=== PATIENT | female | born 1995 | race Caucasian/White ===

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

== ENCOUNTER 2018-08-26 01:24 | Emergency (ER) | payer BC ==
[2018-08-26 03:35] LABS: ALT 36 U/L (9-52); AST 22 U/L (14-36); Albumin 4.2 g/dL (3.5-5.0); Alkaline Phosphatase 66 U/L (38-126); Anion Gap 8 mmol/L; Blood Urea Nitrogen 14 mg/dL (7-17); Calcium 9.6 mg/dL (8.4-10.2); Carbon Dioxide 25 mmol/L (22-30); Chloride 106 mmol/L (98-107); Glucose 110 mg/dL (74-99); Sodium 139 mmol/L (137-145); Total Bilirubin 0.2 mg/dL (0.2-1.3); Total Protein 7.1 g/dL (6.3-8.2)
[2018-08-26 03:36] LABS: Amorphous Sediment,Urine Occasional /hpf; Appearance,Urine Cloudy (Clear); Bacteria,Urine Many /hpf; Bilirubin,Urine Negative (Negative); Blood,Urine Large (Negative); Color,Urine Yellow; Glucose,Urine (UA) Negative (Negative); Ketones,Urine Negative (Negative); Leukocyte Esterase,Urine Small (Negative); Mucus,Urine Few /hpf; Nitrite,Urine Negative (Negative); PH, Urine 5.5 (5.0-8.0); Protein,Urine Trace (Negative); RBC,Urine 13 /hpf (0-5); Specific Gravity,Urine 1.015 (1.001-1.035); Squamous Epithelial Cell,Urine 15 /hpf (0-4); Urobilinogen,Urine <2.0 mg/dL (<2.0); WBC,Urine 16 /hpf (0-5)
[2018-08-26 03:41] LABS: HCG,Qualitative Serum Detected
[2018-08-26 04:02] LABS: Basophils % (A) 0 %; Eosinophils # (A) 0.5 k/uL (0-0.7); Eosinophils % (A) 5 %; HCT 38.4 % (34.0-46.0); HGB 12.3 gm/dL (11.4-16.0); Lymphocytes # (A) 2.5 k/uL (1.0-4.8); Lymphocytes % (A) 24 %; MCHC 32.1 g/dL (31.0-37.0); MCV 87.2 fL (80.0-100.0); Mean Platelet Volume 5.9; Monocytes # (A) 0.6 k/uL (0-1.0); Monocytes % (A) 5 %; Neutrophils # (A) 6.8 k/uL (1.3-7.7); Neutrophils % (A) 64 %; Platelet Count 230 k/uL (150-450); RDW 13.7 % (11.5-15.5); WBC 10.5 k/uL (4.0-11.0)
--- NOTE | 2018-08-26 04:36 | ED ---
Female Urogenital HPI - General Chief complaint: Vaginal Bleeding Stated complaint: poss miscarriage 12 wks Time Seen by Provider: 08/26/18 03:23 Source: patient Mode of arrival: ambulatory Limitations: no limitations - History of Present Illness Initial comments: 22-year-old female patient presents to the emergency department today for evaluation of vaginal bleeding. Patient is approximately 12 weeks , . Patient states bleeding started a couple hours prior to arrival. States that she has had passage of dark red blood and small blood clots. Patient states she did have ultrasound confirming intrauterine at 6 weeks gestation. Patient states that she will be establishing care with Dr. Harrison. She states that she is having some mild suprapubic cramping but denies any low back pain. Denies any passage of tissue. Patient denies any hematuria, dysuria , urinary frequency, urinary urgency. Patient denies any recent rash, fever, chills, shortness breath, chest pain, diarrhea, constipation, back pain, numbness, tingling, dizziness, weakness, headache, visual changes, or any other complaints. Last Menstrual Period: 05/16/18 - Related Data Home Medications Medication Instructions Recorded Confirmed Ascorbic Acid [Vitamin C] 500 mg PO DAILY 11/03/16 11/03/16 Ibuprofen [Motrin] 200 - 400 mg PO Q6HR PRN 11/03/16 11/03/16 Previous Rx's Medication Instructions Recorded Azithromycin [Zithromax] 250 mg PO DIRECTED #6 tab 11/04/16 Allergies Allergy/AdvReac Type Severity Reaction Status Date / Time No Known Allergies Allergy Verified 08/26/18 01:41 Review of Systems ROS Statement: Those systems with pertinent positive or pertinent negative responses have been documented in the HPI. ROS Other: All systems not noted in ROS Statement are negative. Past Medical History Past Medical History: No Reported History History of Any Multi-Drug Resistant Organisms: None Reported Past Surgical History: No Surgical Hx Reported Past Psychological History: ADD/ADHD Smoking Status: Light tobacco smoker Past Alcohol Use History: Occasional Past Drug Use History: Marijuana General Exam Limitations: no limitations General appearance: alert, in no apparent distress, other (This is a well- developed, well-nourished adult male patient in no acute distress. Vital signs upon presentation are temperature 98.0F, pulse 107, respirations 20, blood pressure 141/79, pulse ox 99% on room air.) Eye exam: Present: normal appearance, PERRL, EOMI. Absent: scleral icterus, conjunctival injection, periorbital swelling ENT exam: Present: normal exam, normal oropharynx, mucous membranes moist Respiratory exam: Present: normal lung sounds bilaterally. Absent: respiratory distress, wheezes, rales, rhonchi, stridor Cardiovascular Exam: Present: regular rate, normal rhythm, normal heart sounds. Absent: systolic murmur, diastolic murmur, rubs, gallop, clicks GI/Abdominal exam: Present: soft, normal bowel sounds. Absent: distended, tenderness, guarding, rebound, rigid External exam: Present: normal external exam Speculum exam: Present: vaginal bleeding (Dark red vaginal bleeding, no clots), other (Cervical os is closed). Absent: normal speculum exam Neurological exam: Present: alert, oriented X3, CN II-XII intact Psychiatric exam: Present: normal affect, normal mood Skin exam: Present: warm, dry, intact, normal color. Absent: rash Course Vital Signs 08/26/18 08/26/18 01:36 07:07 Temperature 98 F 97.7 F Pulse Rate 107 H 82 Respiratory 20 16 Rate Blood Pressure 141/79 138/78 O2 Sat by Pulse 99 99 Oximetry Medical Decision Making - Medical Decision Making 22-year-old female patient who is approximately 12 weeks presented to the emergency department today for evaluation of vaginal bleeding. Physical examination did reveal dark red bleeding in the vaginal vault. Cervical os is closed. Labs reviewed and did reveal hCG of 2000. Ultrasound did reveal a blighted ovum. I did discuss findings and results with patient and family. My attending Dr. Keene spoke to Dr. Craig come patient will follow-up in the office. Return parameters were discussed in detail. She verbalizes understanding and agreed with this plan. - Lab Data Result diagrams: 08/26/18 03:03 08/26/18 03:03 Lab Results 08/26/18 08/26/18 08/26/18 Range/Units 03:03 03:03 03:03 WBC (4.0-11.0) k/uL RBC (3.80-5.40) m/uL Hgb (11.4-16.0) gm/dL Hct (34.0-46.0) % MCV (80.0-100.0) fL MCH (25.0-35.0) pg MCHC (31.0-37.0) g/dL RDW (11.5-15.5) % Plt Count (150-450) k/uL Neutrophils % % Lymphocytes % % Monocytes % % Eosinophils % % Basophils % % Neutrophils # (1.3-7.7) k/uL Lymphocytes # (1.0-4.8) k/uL Monocytes # (0-1.0) k/uL Eosinophils # (0-0.7) k/uL Basophils # (0-0.2) k/uL APTT (22.0-30.0) sec Sodium 139 (137-145) mmol/L Potassium 4.0 (3.5-5.1) mmol/L Chloride 106 (98-107) mmol/L Carbon Dioxide 25 (22-30) mmol/L Anion Gap 8 mmol/L BUN 14 (7-17) mg/dL Creatinine 0.48 L (0.52-1.04) mg/dL Est GFR (CKD-EPI)AfAm >90 (>60 ml/min/1.73 sqM) Est GFR (CKD-EPI)NonAf >90 (>60 ml/min/1.73 sqM) Glucose 110 H (74-99) mg/dL Calcium 9.6 (8.4-10.2) mg/dL Total Bilirubin 0.2 (0.2-1.3) mg/dL AST 22 (14-36) U/L ALT 36 (9-52) U/L Alkaline Phosphatase 66 (38-126) U/L Total Protein 7.1 (6.3-8.2) g/dL Albumin 4.2 (3.5-5.0) g/dL HCG, Qual Detected HCG, Quant mIU/mL Urine Color Yellow Urine Appearance Cloudy H (Clear) Urine pH 5.5 (5.0-8.0) Ur Specific [place] 1.015 (1.001-1.035) Urine Protein Trace H (Negative) Urine Glucose (UA) Negative (Negative) Urine Ketones Negative (Negative) Urine Blood Large H (Negative) Urine Nitrite Negative (Negative) Urine Bilirubin Negative (Negative) Urine Urobilinogen <2.0 (<2.0) mg/dL Ur Leukocyte Esterase Small H (Negative) Urine RBC 13 H (0-5) /hpf Urine WBC 16 H (0-5) /hpf Urine WBC Clumps Rare H (None) /hpf Ur Squamous Epith Cells 15 H (0-4) /hpf Amorphous Sediment Occasional H (None) /hpf Urine Bacteria Many H (None) /hpf Urine Mucus Few H (None) /hpf Blood Type O Positive Blood Type Confirm Blood Type Recheck CABO Indicated Antibody Screen NEGATIVE Spec Expiration Date 08/29/2018230208/26/18 08/26/18 08/26/18 Range/Units 03:03 03:03 03:03 WBC 10.5 (4.0-11.0) k/uL RBC 4.40 (3.80-5.40) m/uL Hgb 12.3 (11.4-16.0) gm/dL Hct 38.4 (34.0-46.0) % MCV 87.2 (80.0-100.0) fL MCH 28.0 (25.0-35.0) pg MCHC 32.1 (31.0-37.0) g/dL RDW 13.7 (11.5-15.5) % Plt Count 230 (150-450) k/uL Neutrophils % 64 % Lymphocytes % 24 % Monocytes % 5 % Eosinophils % 5 % Basophils % 0 % Neutrophils # 6.8 (1.3-7.7) k/uL Lymphocytes # 2.5 (1.0-4.8) k/uL Monocytes # 0.6 (0-1.0) k/uL Eosinophils # 0.5 (0-0.7) k/uL Basophils # 0.0 (0-0.2) k/uL APTT 24.9 (22.0-30.0) sec Sodium (137-145) mmol/L Potassium (3.5-5.1) mmol/L Chloride (98-107) mmol/L Carbon Dioxide (22-30) mmol/L Anion Gap mmol/L BUN (7-17) mg/dL Creatinine (0.52-1.04) mg/dL Est GFR (CKD-EPI)AfAm (>60 ml/min/1.73 sqM) Est GFR (CKD-EPI)NonAf (>60 ml/min/1.73 sqM) Glucose (74-99) mg/dL Calcium (8.4-10.2) mg/dL Total Bilirubin (0.2-1.3) mg/dL AST (14-36) U/L ALT (9-52) U/L Alkaline Phosphatase (38-126) U/L Total Protein (6.3-8.2) g/dL Albumin (3.5-5.0) g/dL HCG, Qual HCG, Quant 2414.6 mIU/mL Urine Color Urine Appearance (Clear) Urine pH (5.0-8.0) Ur Specific [place] (1.001-1.035) Urine Protein (Negative) Urine Glucose (UA) (Negative) Urine Ketones (Negative) Urine Blood (Negative) Urine Nitrite (Negative) Urine Bilirubin (Negative) Urine Urobilinogen (<2.0) mg/dL Ur Leukocyte Esterase (Negative) Urine RBC (0-5) /hpf Urine WBC (0-5) /hpf Urine WBC Clumps (None) /hpf Ur Squamous Epith Cells (0-4) /hpf Amorphous Sediment (None) /hpf Urine Bacteria (None) /hpf Urine Mucus (None) /hpf Blood Type Blood Type Confirm Blood Type Recheck Antibody Screen Spec Expiration Date 08/26/18 Range/Units 03:04 WBC (4.0-11.0) k/uL RBC (3.80-5.40) m/uL Hgb (11.4-16.0) gm/dL Hct (34.0-46.0) % MCV (80.0-100.0) fL MCH (25.0-35.0) pg MCHC (31.0-37.0) g/dL RDW (11.5-15.5) % Plt Count (150-450) k/uL Neutrophils % % Lymphocytes % % Monocytes % % Eosinophils % % Basophils % % Neutrophils # (1.3-7.7) k/uL Lymphocytes # (1.0-4.8) k/uL Monocytes # (0-1.0) k/uL Eosinophils # (0-0.7) k/uL Basophils # (0-0.2) k/uL APTT (22.0-30.0) sec Sodium (137-145) mmol/L Potassium (3.5-5.1) mmol/L Chloride (98-107) mmol/L Carbon Dioxide (22-30) mmol/L Anion Gap mmol/L BUN (7-17) mg/dL Creatinine (0.52-1.04) mg/dL Est GFR (CKD-EPI)AfAm (>60 ml/min/1.73 sqM) Est GFR (CKD-EPI)NonAf (>60 ml/min/1.73 sqM) Glucose (74-99) mg/dL Calcium (8.4-10.2) mg/dL Total Bilirubin (0.2-1.3) mg/dL AST (14-36) U/L ALT (9-52) U/L Alkaline Phosphatase (38-126) U/L Total Protein (6.3-8.2) g/dL Albumin (3.5-5.0) g/dL HCG, Qual HCG, Quant mIU/mL Urine Color Urine Appearance (Clear) Urine pH (5.0-8.0) Ur Specific [place] (1.001-1.035) Urine Protein (Negative) Urine Glucose (UA) (Negative) Urine Ketones (Negative) Urine Blood (Negative) Urine Nitrite (Negative) Urine Bilirubin (Negative) Urine Urobilinogen (<2.0) mg/dL Ur Leukocyte Esterase (Negative) Urine RBC (0-5) /hpf Urine WBC (0-5) /hpf Urine WBC Clumps (None) /hpf Ur Squamous Epith Cells (0-4) /hpf Amorphous Sediment (None) /hpf Urine Bacteria (None) /hpf Urine Mucus (None) /hpf Blood Type Blood Type Confirm O Positive Blood Type Recheck Antibody Screen Spec Expiration Date Disposition Clinical Impression: Blighted ovum Disposition: HOME SELF-CARE Condition: Good Instructions: Miscarriage (ED) Additional Instructions: Follow up with OBGYN for further evaluation. Take pain medication as needed. Return to the emergency department immediately for any new, worsening, or concerning symptoms. Is patient prescribed a controlled substance at d/c from ED?: No Referrals: None,Stated [Primary Care Provider] - 1-2 days Time of Disposition: 06:39
[2018-08-26] MEDS ORDERED: CEPHALEXIN 500MG STARTER PACK 4 CAP BTL PO STA (06:30)
--- NOTE | 2018-08-26 06:34 | US ---
EXAMINATION TYPE: Transabdominal DATE OF EXAM: 11/14/17 COMPARISON: NONE CLINICAL HISTORY: Pain. Vaginal bleeding today in ; EXAM PERFORMED: Transvaginal (TV) and Transabdominal (TA) EXAM MEASUREMENTS: GESTATIONAL AGE / DATING Physician Established: (12 weeks/0 days) EDC: 03/10/2019 Dates by LMP: LMP unknown Dates by First Scan: No previous here Dates by Current Scan for: by gestational sac size EDC = (8weeks 2 days) MATERNAL ANATOMY Uterus: 9.8 x 6.0 x 5.7cm Right Ovary: 3.6 x 2.3 x 2.3cm Left Ovary: 3.9 x 2.9 x 2.8cm Post CDS / Adnexa: wnl Presence of free fluid: no Presence of corpus luteal cyst: in left ovary = 2.0 x 1.9 x 2.0cm Presence of subchorionic bleed: no GESTATION / SURVEY CRL: no fetus is seen within amniotic sac, only very small, lobular,wall echoes on images #[id number], [id number], [id number], etc. MSD: 3.3cm (8 weeks/2 days) Yolk Sac (normal less than 6mm): not seen Heart Rate: no color flow, power color flow or Pulse Doppler Waveform could detect heart rate at echo genic wall area within amniotic sac. Date of LMP: unknown Beta HcG (if available): 2414.6 quantitative No viable fetus is seen within amniotic sac. Gestational sac measures 4.9 x 2.2 x 2.7 cm. IMPRESSION: Findings are consistent with blighted ovum.
[2018-08-26] MEDS ORDERED: ACET/COD 300 MG/30 MG STARTER PACK 6 TAB BTL PO STA (06:48)
[2018-08-26 07:09] VITALS: BP 138/78; PULSE 82; RESP 16; TEMP 97.7
== END 2018-08-26 07:08 | disposition home or self-care (01) ==
LOC: EC 01:24
DX: O02.0 Blighted ovum and nonhydatidiform mole (principal); O99.331 Smoking (tobacco) complicating pregnancy, first trimester; F17.200 Nicotine dependence, unspecified, uncomplicated; Z3A.12 12 weeks gestation of pregnancy
CPT/HCPCS: 36415; 76801; 76817; 80053; 81001; 84702; 84703; 85025; 85730; 86850; 86900; 86901; 87077; 87086; 87186; 99284

== ENCOUNTER → 2018-08-28 | Outpatient (CLI) | payer BC | END | disposition home or self-care (01) | LOC: LABWHC1 11:55 | PROVIDERS: ATTEND Obstetrics & Gynecology | DX: O26.811 Pregnancy related exhaustion and fatigue, first trimester (principal); Z3A.00 Weeks of gestation of pregnancy not specified | CPT/HCPCS: 36415; 84702 ==

== ENCOUNTER 2018-09-01 22:35 | Emergency (ER) | payer BC ==
[2018-09-01] MEDS ORDERED: SODIUM CHLORIDE 0.9% 1,000 ML IV ONE ×2 (22:52)
[2018-09-01 23:12] LABS: Basophils % (A) 0 %; Eosinophils # (A) 0.5 k/uL (0-0.7); Eosinophils % (A) 5 %; HCT 34.5 % (34.0-46.0); HGB 11.8 gm/dL (11.4-16.0); Lymphocytes # (A) 2.9 k/uL (1.0-4.8); Lymphocytes % (A) 31 %; MCHC 34.3 g/dL (31.0-37.0); MCV 84.6 fL (80.0-100.0); Mean Platelet Volume 6.3; Monocytes # (A) 0.4 k/uL (0-1.0); Monocytes % (A) 4 %; Neutrophils # (A) 5.3 k/uL (1.3-7.7); Neutrophils % (A) 57 %; Platelet Count 194 k/uL (150-450); RBC 4.08 m/uL (3.80-5.40); RDW 13.6 % (11.5-15.5); WBC 9.3 k/uL (4.0-11.0)
[2018-09-01 23:23] LABS: ALT 65 U/L (9-52); AST 45 U/L (14-36); Albumin 4.2 g/dL (3.5-5.0); Alkaline Phosphatase 73 U/L (38-126); Anion Gap 9 mmol/L; Blood Urea Nitrogen 18 mg/dL (7-17); Calcium 9.5 mg/dL (8.4-10.2); Carbon Dioxide 25 mmol/L (22-30); Chloride 107 mmol/L (98-107); Glucose 92 mg/dL (74-99); INR 0.9 (<1.2); Partial Thromboplastin Time 24.9 sec (22.0-30.0); Prothrombin Time 9.9 sec (9.0-12.0); Sodium 141 mmol/L (137-145); Total Bilirubin 0.2 mg/dL (0.2-1.3)
--- NOTE | 2018-09-01 23:32 | ED ---
Female Urogenital HPI - General Chief complaint: Vaginal Bleeding Stated complaint: miscarriage Time Seen by Provider: 09/01/18 22:46 Source: patient, family, RN notes reviewed, old records reviewed Mode of arrival: ambulatory Limitations: no limitations - History of Present Illness Initial comments: Patient is a 22-year-old female, presents emergency department today with complaints of vaginal bleeding for 6 days. She reports that she's had heavy vaginal bleeding going through 3 pads an hour within the past day. Patient states that she was diagnosed with miscarriage related week and has followed up with her SAFETY SPE[facility] Dr. Harrison. Patient has had no fevers or chills. She states that she has been using Tylenol codeine for pain relief. Patient complains of feeling somewhat dizzy and lightheaded. - Related Data Home Medications Medication Instructions Recorded Confirmed Ascorbic Acid [Vitamin C] 500 mg PO DAILY 11/03/16 11/03/16 Ibuprofen [Motrin] 200 - 400 mg PO Q6HR PRN 11/03/16 11/03/16 Previous Rx's Medication Instructions Recorded Azithromycin [Zithromax] 250 mg PO DIRECTED #6 tab 11/04/16 Allergies Allergy/AdvReac Type Severity Reaction Status Date / Time No Known Allergies Allergy Verified 09/01/18 22:45 Review of Systems ROS Statement: Those systems with pertinent positive or pertinent negative responses have been documented in the HPI. ROS Other: All systems not noted in ROS Statement are negative. Past Medical History Past Medical History: No Reported History History of Any Multi-Drug Resistant Organisms: None Reported Past Surgical History: No Surgical Hx Reported Past Psychological History: ADD/ADHD Smoking Status: Light tobacco smoker Past Alcohol Use History: Occasional Past Drug Use History: Marijuana General Exam - General Exam Comments Initial Comments: 22-year-old female. Alert and oriented. No distress. Limitations: no limitations General appearance: alert, in no apparent distress Head exam: Present: atraumatic, normocephalic, normal inspection Eye exam: Present: normal appearance, PERRL, EOMI. Absent: scleral icterus, conjunctival injection, periorbital swelling ENT exam: Present: normal exam, mucous membranes moist Neck exam: Present: normal inspection. Absent: tenderness, meningismus, lymphadenopathy Respiratory exam: Present: normal lung sounds bilaterally. Absent: respiratory distress, wheezes, rales, rhonchi, stridor Cardiovascular Exam: Present: regular rate, normal rhythm, normal heart sounds. Absent: systolic murmur, diastolic murmur, rubs, gallop, clicks GI/Abdominal exam: Present: soft, normal bowel sounds. Absent: distended, tenderness, guarding, rebound, rigid External exam: Present: normal external exam Speculum exam: Present: vaginal bleeding. Absent: normal speculum exam By manual exam: Present: normal by manual exam Extremities exam: Present: normal inspection, full ROM, normal capillary refill. Absent: tenderness, pedal edema, joint swelling, calf tenderness Back exam: Present: normal inspection Neurological exam: Present: alert, oriented X3, CN II-XII intact Psychiatric exam: Present: normal affect, normal mood Course Vital Signs 09/01/18 09/01/18 09/02/18 22:41 23:58 00:46 Temperature 98.3 F 97.8 F Pulse Rate 95 78 83 Respiratory 18 16 18 Rate Blood Pressure 125/77 118/74 115/84 O2 Sat by Pulse 97 99 99 Oximetry Medical Decision Making - Medical Decision Making Patient is a 22-year-old female, presents emergency department today with complaints of vaginal bleeding for 6 days. She reports that she's had heavy vaginal bleeding going through 3 pads an hour within the past day. Patient states that she was diagnosed with miscarriage related week and has followed up with her [facility]AFETY [facility] Dr. Harrison. Patient has had no fevers or chills. Patient does have some bleeding on exam. Vital signs are stable. Hemoglobin is stable this time. No significant decrease. Her hCG level continues to decrease at this time and is now 200. This is consistent from her last hCG level drawn and her blood loss. I did discuss with the Patient she needs follow-up with her OB/ [facility]. They plan to get her hCG level redrawn on Monday. Discussed no heavy lifting and no other intercourse at this time. Discussed pelvic rest. Patient agrees to treatment plan will comply. Return parameters were discussed. - Lab Data Result diagrams: 09/01/18 23:01 09/01/18 23:01 Lab Results 09/01/18 09/01/18 09/01/18 Range/Units 23:01 23:01 23:01 WBC 9.3 (4.0-11.0) k/uL RBC 4.08 (3.80-5.40) m/uL Hgb 11.8 (11.4-16.0) gm/dL Hct 34.5 (34.0-46.0) % MCV 84.6 (80.0-100.0) fL MCH 29.0 (25.0-35.0) pg MCHC 34.3 (31.0-37.0) g/dL RDW 13.6 (11.5-15.5) % Plt Count 194 (150-450) k/uL Neutrophils % 57 % Lymphocytes % 31 % Monocytes % 4 % Eosinophils % 5 % Basophils % 0 % Neutrophils # 5.3 (1.3-7.7) k/uL Lymphocytes # 2.9 (1.0-4.8) k/uL Monocytes # 0.4 (0-1.0) k/uL Eosinophils # 0.5 (0-0.7) k/uL Basophils # 0.0 (0-0.2) k/uL PT 9.9 (9.0-12.0) sec INR 0.9 (<1.2) APTT 24.9 (22.0-30.0) sec Sodium 141 (137-145) mmol/L Potassium 4.0 (3.5-5.1) mmol/L Chloride 107 (98-107) mmol/L Carbon Dioxide 25 (22-30) mmol/L Anion Gap 9 mmol/L BUN 18 H (7-17) mg/dL Creatinine 0.63 (0.52-1.04) mg/dL Est GFR (CKD-EPI)AfAm >90 (>60 ml/min/1.73 sqM) Est GFR (CKD-EPI)NonAf >90 (>60 ml/min/1.73 sqM) Glucose 92 (74-99) mg/dL Calcium 9.5 (8.4-10.2) mg/dL Total Bilirubin 0.2 (0.2-1.3) mg/dL AST 45 H (14-36) U/L ALT 65 H (9-52) U/L Alkaline Phosphatase 73 (38-126) U/L Total Protein 7.0 (6.3-8.2) g/dL Albumin 4.2 (3.5-5.0) g/dL HCG, Quant 425.9 mIU/mL Urine Color Urine Appearance (Clear) Urine pH (5.0-8.0) Ur Specific [place] (1.001-1.035) Urine Protein (Negative) Urine Glucose (UA) (Negative) Urine Ketones (Negative) Urine Blood (Negative) Urine Nitrite (Negative) Urine Bilirubin (Negative) Urine Urobilinogen (<2.0) mg/dL Ur Leukocyte Esterase (Negative) Urine RBC (0-5) /hpf Urine WBC (0-5) /hpf Ur Squamous Epith Cells (0-4) /hpf Urine Mucus (None) /hpf Blood Type Blood Type Recheck Antibody Screen Spec Expiration Date 09/01/18 09/01/18 Range/Units 23:01 23:44 WBC (4.0-11.0) k/uL RBC (3.80-5.40) m/uL Hgb (11.4-16.0) gm/dL Hct (34.0-46.0) % MCV (80.0-100.0) fL MCH (25.0-35.0) pg MCHC (31.0-37.0) g/dL RDW (11.5-15.5) % Plt Count (150-450) k/uL Neutrophils % % Lymphocytes % % Monocytes % % Eosinophils % % Basophils % % Neutrophils # (1.3-7.7) k/uL Lymphocytes # (1.0-4.8) k/uL Monocytes # (0-1.0) k/uL Eosinophils # (0-0.7) k/uL Basophils # (0-0.2) k/uL PT (9.0-12.0) sec INR (<1.2) APTT (22.0-30.0) sec Sodium (137-145) mmol/L Potassium (3.5-5.1) mmol/L Chloride (98-107) mmol/L Carbon Dioxide (22-30) mmol/L Anion Gap mmol/L BUN (7-17) mg/dL Creatinine (0.52-1.04) mg/dL Est GFR (CKD-EPI)AfAm (>60 ml/min/1.73 sqM) Est GFR (CKD-EPI)NonAf (>60 ml/min/1.73 sqM) Glucose (74-99) mg/dL Calcium (8.4-10.2) mg/dL Total Bilirubin (0.2-1.3) mg/dL AST (14-36) U/L ALT (9-52) U/L Alkaline Phosphatase (38-126) U/L Total Protein (6.3-8.2) g/dL Albumin (3.5-5.0) g/dL HCG, Quant mIU/mL Urine Color Red Urine Appearance Cloudy H (Clear) Urine pH 5.5 (5.0-8.0) Ur Specific [place] 1.026 (1.001-1.035) Urine Protein 2+ H (Negative) Urine Glucose (UA) Negative (Negative) Urine Ketones 1+ H (Negative) Urine Blood Large H (Negative) Urine Nitrite Negative (Negative) Urine Bilirubin Negative (Negative) Urine Urobilinogen <2.0 (<2.0) mg/dL Ur Leukocyte Esterase Small H (Negative) Urine RBC >182 H (0-5) /hpf Urine WBC 167 H (0-5) /hpf Ur Squamous Epith Cells 6 H (0-4) /hpf Urine Mucus Many H (None) /hpf Blood Type O Positive Blood Type Recheck No Antibody Screen NEGATIVE Spec Expiration Date 09/04/2018 - 2300 Disposition Clinical Impression: Miscarriage Disposition: HOME SELF-CARE Condition: Good Instructions: Miscarriage (ED) Additional Instructions: Patient lives to follow-up with your [facility] on Monday. Repeat her hCG level. Rest, remain hydrated. No intercourse or heavy lifting. Return to emergency department if any alarming signs or symptoms occur. Is patient prescribed a controlled substance at d/c from ED?: No Referrals: None,Stated [Primary Care Provider] - 1-2 days Jessica Harrison DO [Doctor of Osteopathic Medicine] - 1-2 days Time of Disposition: 00:38
[2018-09-01 23:40] LABS: HCG,Quantitative Serum 425.9 mIU/mL
[2018-09-01] MEDS ORDERED: KETOROLAC 30 MG/ML 1 ML VIAL IVP STA (23:46)
[2018-09-01 23:57] LABS: Appearance,Urine Cloudy (Clear); Bilirubin,Urine Negative (Negative); Blood,Urine Large (Negative); Color,Urine Red; Glucose,Urine (UA) Negative (Negative); Ketones,Urine 1+ (Negative); Leukocyte Esterase,Urine Small (Negative); Mucus,Urine Many /hpf; Nitrite,Urine Negative (Negative); PH, Urine 5.5 (5.0-8.0); Protein,Urine 2+ (Negative); RBC,Urine >182 /hpf (0-5); Specific Gravity,Urine 1.026 (1.001-1.035); Squamous Epithelial Cell,Urine 6 /hpf (0-4); Urobilinogen,Urine <2.0 mg/dL (<2.0)
[2018-09-02 00:46] VITALS: BP 115/84; PULSE 83; RESP 18; TEMP 97.8
== END 2018-09-02 00:47 | disposition home or self-care (01) ==
LOC: EC 22:35
DX: O03.9 Complete or unspecified spontaneous abortion without complication (principal); O99.330 Smoking (tobacco) complicating pregnancy, unspecified trimester; F17.200 Nicotine dependence, unspecified, uncomplicated; Z3A.00 Weeks of gestation of pregnancy not specified
CPT/HCPCS: 36415; 86900; 86901; 80053; 85025; 85610; 85730; 86850; 81001; 84702; 87086; 99284; 96374; 96361 ×2; J1885

== ENCOUNTER → 2018-09-11 | Outpatient (CLI) | payer BC | END | disposition home or self-care (01) | LOC: LABWHC1 14:28 | PROVIDERS: ATTEND Obstetrics & Gynecology | DX: O26.811 Pregnancy related exhaustion and fatigue, first trimester (principal); Z3A.00 Weeks of gestation of pregnancy not specified | CPT/HCPCS: 36415; 84702 ==

== ENCOUNTER → 2018-09-12 | Outpatient (CLI) | payer BC ==
--- NOTE | 2018-09-12 15:05 | US ---
EXAMINATION TYPE: Transabdominal DATE OF EXAM: 11/14/17 COMPARISON: 08/26/2018 CLINICAL HISTORY: 23-year-old female R68.89 Other general symptoms and signs. Vaginal bleeding, Beta 09/01= 200, Beta 09/11= 393, previous abnormal US EXAM PERFORMED: Transvaginal (TV) and Transabdominal (TA) FINDINGS: EXAM MEASUREMENTS: GESTATIONAL AGE / DATING Physician Established: Not established Dates by LMP: Unknown Dates by First Scan: (10 weeks/6 days) EDC: 04/05/2019 Dates by Current Scan for: No IUP seen MATERNAL ANATOMY Uterus: 9.8 x 4.5 x 5.2 cm Right Ovary: 3.1 x 2.2 x 2.3 cm Left Ovary: 3.8 x 2.6 x 2.0 cm Post CDS / Adnexa: wnl Presence of free fluid: Small amount post cul-de-sac GESTATION / SURVEY IUP: No IUP seen at this time Pocket Setter Lockstitch notes:Thickened, heterogeneous endometrium= 2.2 cm, extending towards cervix, ?possible retained products No appreciable vascularity here. Results called to Timi at 's office at time of exam IMPRESSION: 1. Diffuse endometrial thickening or heterogeneous material throughout the uterine cavity measuring u p to 2.2 cm thick. Given the appearance of a gestational sac on 08/26/2018, findings are suggestive of retained products. 2. Small amount of cul-de-sac free fluid.
== END ==
LOC: RADUSWWP 14:00
PROVIDERS: ATTEND Obstetrics & Gynecology
DX: R68.89 Other general symptoms and signs (principal); Z3A.00 Weeks of gestation of pregnancy not specified
CPT/HCPCS: 76801; 76817

== ENCOUNTER → 2018-09-14 | Day surgery (SDC) | payer BC ==
[~2018-09-14] MED LIST: DEXAMETHASONE SOD PHOS (MDV) 100 MG/10 ML VIAL IVP ONE; KETOROLAC 30 MG/ML 1 ML VIAL ONE; LACTATED RINGERS 1,000 ML IV ONE; LIDOCAINE 1% 20 ML VIAL (10MG/ML) FOR IV START INTRADERMA ONE; LIDOCAINE 1% INJ 10MG/ML (20 ML MDV) ONE; MIDAZOLAM 2 MG/2 ML VIAL ONE; ONDANSETRON 4 MG/2 ML VIAL IVP ONE; PROPOFOL 10 MG/ML 20 ML VIAL IV ONE; Pre Op ABX Message 1 EACH MISC MISCELLANE ONE; fentaNYL (PF) 50 MCG/ML 2 ML AMP ONE
[2018-09-14 06:22] VITALS: BMI 39.1
[2018-09-14 06:27] VITALS: RESP 16
--- NOTE | 2018-09-14 06:30 | P.HPOB ---
History of Present Illness H&P Date: 09/14/18 Chief Complaint: incomplete 23 year old presents for suction D&C. She had an US that showed a gestational sac on 08/26/2018 and another ultrasound on 09/04/2018 that showed gestational sac in the past. There was still some thickened endometrium and her beta hCG is not dropping to 0, last check was 393. She continues to have bleeding with clots and some cramping. She was consented for suction D&C. Review of Systems All systems: negative Constitutional: Denies chills, Denies fever Eyes: denies blurred vision, denies pain Ears, nose, mouth and throat: Denies headache, Denies sore throat Cardiovascular: Denies chest pain, Denies shortness of breath Respiratory: Denies cough Gastrointestinal: Denies abdominal pain, Denies diarrhea, Denies nausea, Denies vomiting Genitourinary: Denies dysuria, Denies hematuria Musculoskeletal: Denies myalgias Integumentary: Denies pruritus, Denies rash Neurological: Denies numbness, Denies weakness Psychiatric: Denies anxiety, Denies depression Endocrine: Denies fatigue, Denies weight change Past Medical History Past Medical History: No Reported History Additional Past Medical History / Comment(s): Obstetric history: She's had 1 prior spontaneous History of Any Multi-Drug Resistant Organisms: None Reported Past Surgical History: No Surgical Hx Reported Past Psychological History: ADD/ADHD Smoking Status: Light tobacco smoker Past Alcohol Use History: Occasional Past Drug Use History: Marijuana Medications and Allergies Home Medications Medication Instructions Recorded Confirmed Type Ibuprofen [Motrin] 200 - 400 mg PO Q6HR PRN 11/03/16 09/14/18 History Allergies Allergy/AdvReac Type Severity Reaction Status Date / Time No Known Allergies Allergy Verified 09/01/18 22:45 Exam Osteopathic Statement: *. No significant issues noted on an osteopathic structural exam other than those noted in the History and Physical/Consult. Intake and Output 09/13/18 09/13/18 09/14/18 14:59 22:59 06:59 Other: Weight 97.069 kg Heart: Regular rate and rhythm Lungs: Clear to auscultation bilaterally Abdomen: Soft, nontender Extremities: Negative Homans sign Assessment and Plan (1) Incomplete Current Visit: Yes Status: Acute Code(s): O03.4 - INCOMPLETE SPONTANEOUS WITHOUT COMPLICATION SNOMED Code(s): 684219372 Plan: 1. Suction D&C 2. We've discussed sending the products of conception for chromosome analysis.
--- NOTE | 2018-09-14 08:06 | P.OP ---
Date of Procedure: 09/14/18 Preoperative Diagnosis: 1. Incomplete Postoperative Diagnosis: 1. Incomplete Procedure(s) Performed: Suction D&C Anesthesia: MAC Surgeon: Jessica Harrison Estimated Blood Loss (ml): 50 Urine output (ml): 100 Pathology: other (Products of conception) Condition: stable Disposition: PACU Operative Findings: Cervix was dilated 1 cm. Large chunks of tissue with minimal bleeding. Description of Procedure: Patient is taken the operating room where general anesthesia was obtained without difficulty. She is prepped and draped in normal sterile fashion dorsal lithotomy position, legs placed in candycane stirrups. Bladder was drained of all urine. Weighted speculum place in vagina and the anterior lip of the cervix was grasped with single-tooth tenaculum. The cervix was very found to be dilated and a #11 Hegar dilator passed through easily. #11 curved suction curet was introduced and hooked up to suction. This was passed several times to obtain tissue and blood. Sharp curet was gently used to ensure all tissue had been removed. All instruments removed from the vagina. Patient tolerated the procedure well. Sponge and instrument counts are correct 2. She was taken to recovery in stable condition.
[2018-09-14 08:08] VITALS: TEMP 98.1
[2018-09-14 09:05] VITALS: BP 99/64; PULSE 85
== END | disposition home or self-care (01) ==
LOC: OR 05:58
PROVIDERS: ATTEND Obstetrics & Gynecology
DX: O03.4 Incomplete spontaneous abortion without complication (principal); F90.9 Attention-deficit hyperactivity disorder, unspecified type; F17.200 Nicotine dependence, unspecified, uncomplicated
CPT/HCPCS: 88305; 59812; J2250; J2405; J2001; J3010; J1885; J1100; J2704

== ENCOUNTER → 2019-04-04 | Outpatient (CLI) | payer BC | END | disposition home or self-care (01) | LOC: LABWHC1 10:32 | PROVIDERS: ATTEND Obstetrics & Gynecology | DX: N91.2 Amenorrhea, unspecified (principal) | CPT/HCPCS: 36415; 84702 ==

== ENCOUNTER → 2019-08-27 | Outpatient (CLI) | payer BC | END | disposition home or self-care (01) | LOC: LABWHC1 13:15 | PROVIDERS: ATTEND Obstetrics & Gynecology | DX: N92.6 Irregular menstruation, unspecified (principal) | CPT/HCPCS: 36415; 84702 ==

== ENCOUNTER → 2021-02-08 | Outpatient (CLI) | payer BC | END | disposition home or self-care (01) | LOC: LABWHC1 15:49 | PROVIDERS: ATTEND Obstetrics & Gynecology | DX: N92.6 Irregular menstruation, unspecified (principal) | CPT/HCPCS: 36415; 84702 ==

== ENCOUNTER 2021-04-08 13:49 | Emergency (ER) | payer BC ==
[2021-04-08 14:00] VITALS: BP 121/78; PULSE 73; RESP 20; TEMP 98.8
[2021-04-08] MEDS ORDERED: FAMOTIDINE 20 MG TAB PO STA (14:07)
[2021-04-08] MEDS ORDERED: methylPREDNISolone SOD SUCCI 125 MG/2 ML VIAL IM ONE (14:07)
[2021-04-08] MEDS ORDERED: methylPREDNISolone SOD SUCCI 125 MG/2 ML VIAL IV STA (14:16)
[2021-04-08] MEDS ORDERED: FAMOTIDINE 20 MG/2 ML VIAL IV STA (14:16)
--- NOTE | 2021-04-08 15:28 | ED ---
Allergic Reaction HPI - General Chief complaint: Allergic Reaction Stated complaint: bee sting, allergic Time Seen by Provider: 04/08/21 14:07 Source: patient Mode of arrival: ambulatory Limitations: no limitations - History of Present Illness Initial Comments: 25-year-old female presented emergency Department with a chief complaint of a bee sting. Patient reports it occurred 20 minutes prior to arrival. Patient states she feels like her throat is closing but has no difficulty breathing and denies any drooling. She states when she was a child, she had to use an EpiPen for a bee sting. This time she had to bee stings in the hand and the leg. She reports taking 2 Benadryl tablets with no improvement of symptoms. She denies any rashes on her body. - Related Data Home Medications Medication Instructions Recorded Confirmed EPINEPHrine (Auto Inject) [Epipen] 0.3 mg IM ONCE PRN 04/08/21 04/08/21 Previous Rx's Medication Instructions Recorded predniSONE 50 mg PO DAILY #5 tab 04/08/21 Allergies Allergy/AdvReac Type Severity Reaction Status Date / Time bee venom protein (honey bee) Allergy Anaphylaxis Verified 04/08/21 15:22 Review of Systems ROS Statement: Those systems with pertinent positive or pertinent negative responses have been documented in the HPI. ROS Other: All systems not noted in ROS Statement are negative. Past Medical History Past Medical History: No Reported History Additional Past Medical History / Comment(s): Obstetric history: She's had 1 prior spontaneous History of Any Multi-Drug Resistant Organisms: None Reported Past Surgical History: No Surgical Hx Reported Past Psychological History: ADD/ADHD Smoking Status: Never smoker Past Alcohol Use History: Occasional Past Drug Use History: Marijuana General Exam Limitations: no limitations General appearance: alert, in no apparent distress, obese Head exam: Present: atraumatic, normocephalic, normal inspection Eye exam: Present: normal appearance Pupils: Present: normal accommodation ENT exam: Present: normal exam, normal oropharynx, mucous membranes moist, TM's normal bilaterally, normal external ear exam Neck exam: Present: normal inspection, full ROM. Absent: tenderness Respiratory exam: Present: normal lung sounds bilaterally. Absent: respiratory distress, wheezes, rales, rhonchi, stridor, chest wall tenderness, accessory muscle use Cardiovascular Exam: Present: regular rate, normal rhythm, normal heart sounds. Absent: systolic murmur Extremities exam: Present: normal inspection, full ROM, normal capillary refill. Absent: tenderness, pedal edema, joint swelling Back exam: Present: normal inspection, full ROM. Absent: tenderness Neurological exam: Present: alert, oriented X3 Psychiatric exam: Present: normal affect, normal mood Skin exam: Present: warm, dry, intact, normal color Course Vital Signs 04/08/21 13:58 Temperature 98.8 F Pulse Rate 73 Respiratory 20 Rate Blood Pressure 121/78 O2 Sat by Pulse 100 Oximetry Medical Decision Making - Medical Decision Making 25-year-old female presenting to the emergency department with a chief complaint of an ALLERGIC reaction. On physical examination, patient does not appear to be any respiratory distress. She is able to talk with complete sentences. No signs of difficulty swallowing or drooling. No noticeable urticaria. I gave the patient Solu-Medrol and Pepcid. Patient was observed in the emergency department for approximately 2 hours. On reevaluation, she reports feeling better. I will give her prescription for 5 day course of prednisone. Return parameters were thoroughly discussed with patient was understanding and agreeable. Disposition Clinical Impression: Allergic reaction to bee sting Disposition: HOME SELF-CARE Condition: Stable Instructions (If sedation given, give patient instructions): General Allergic Reaction (ED) Additional Instructions: Take medication as directed. Follow with the primary care physician. Return to emergency department if symptoms worsen. Prescriptions: predniSONE 50 mg PO DAILY #5 tab Is patient prescribed a controlled substance at d/c from ED?: No Referrals: None,Stated [Primary Care Provider] - 1-2 days Time of Disposition: 15:28
== END 2021-04-08 15:53 | disposition home or self-care (01) ==
LOC: EC 13:49
DX: T63.441A Toxic effect of venom of bees, accidental (unintentional), initial encounter (principal); F90.9 Attention-deficit hyperactivity disorder, unspecified type; F12.90 Cannabis use, unspecified, uncomplicated; Z79.52 Long term (current) use of systemic steroids
CPT/HCPCS: 99282; 96374; 96375; J2930

== ENCOUNTER 2022-02-12 12:57 | Emergency (ER) | payer BC ==
[2022-02-12 13:01] VITALS: BP 121/77; PULSE 92; RESP 18; TEMP 98.3
[2022-02-12] MEDS ORDERED: IBUPROFEN 800 MG TAB PO STA (13:12)
[2022-02-12] MEDS ORDERED: DIPH,PERTUS(ACELL)TETVAC-LF 0.5 ML VIAL IM ONE (13:18)
--- NOTE | 2022-02-12 13:23 | ED ---
General Adult HPI - General Chief complaint: Extremity Injury, Upper Stated complaint: hand injury Time Seen by Provider: 02/12/22 13:10 Source: patient, RN notes reviewed, old records reviewed Mode of arrival: ambulatory Limitations: no limitations - History of Present Illness Initial comments: 26-year-old female presents to the emergency room with complaints of smashing her hand between the trashcan and the freezer last night around 8:30 PM. Patient states that she has increased pain and swelling today with some bruising. -: days(s) (1) Location: right, upper extremity (hand) Radiation: non-radiation Severity scale (1-10): 6 Quality: constant Consistency: constant Improves with: immobilization Worsens with: movement Associated Symptoms: denies other symptoms Treatments Prior to Arrival: NSAID, other (ezequiel wrap) - Related Data Home Medications Medication Instructions Recorded Confirmed EPINEPHrine (Auto Inject) [Epipen] 0.3 mg IM ONCE PRN 04/08/21 04/08/21 Previous Rx's Medication Instructions Recorded predniSONE 50 mg PO DAILY #5 tab 04/08/21 Allergies Allergy/AdvReac Type Severity Reaction Status Date / Time bee venom protein (honey bee) Allergy Anaphylaxis Verified 02/12/22 13:01 Review of Systems ROS Statement: Those systems with pertinent positive or pertinent negative responses have been documented in the HPI. ROS Other: All systems not noted in ROS Statement are negative. Past Medical History Past Medical History: No Reported History Additional Past Medical History / Comment(s): Obstetric history: She's had 1 prior spontaneous History of Any Multi-Drug Resistant Organisms: None Reported Past Surgical History: No Surgical Hx Reported Past Psychological History: ADD/ADHD Smoking Status: Never smoker Past Alcohol Use History: Occasional Past Drug Use History: Marijuana General Exam Limitations: no limitations General appearance: alert, in no apparent distress Head exam: Present: atraumatic Neck exam: Absent: meningismus Respiratory exam: Absent: respiratory distress, accessory muscle use Cardiovascular Exam: Present: regular rate Extremities exam: Present: normal capillary refill Right Hand Wrist exam: Present: full ROM, tenderness, swelling, ecchymosis. Absent: laceration, dislocation, erythema, amputation Neuro motor exam: Present: wrist extension intact Neurosensory exam: Present: radial nerve intact, ulnar nerve intact, median nerve intact Vascular: Present: normal capillary refill. Absent: vascular compromise Neurological exam: Present: alert, oriented X3, normal gait Psychiatric exam: Present: normal affect, normal mood Skin exam: Present: warm, dry, normal color. Absent: cyanosis, diaphoretic Course Vital Signs 02/12/22 12:58 Temperature 98.3 F Pulse Rate 92 Respiratory 18 Rate Blood Pressure 121/77 O2 Sat by Pulse 97 Oximetry Medical Decision Making - Medical Decision Making Patient presents after hand injury yesterday at 8 PM. Tetanus was updated at this visit due to the abrasion on her hand. X-ray shows no evidence of fracture. There is some swelling and bruising noted. Patient instructed to continue wearing the Ezequiel wrap and take Tylenol and/or Motrin as needed for pain or inflammation. Follow-up with her primary care doctor next week and return to the emergency room with any new or concerning symptoms including increased pain, pallor or numbness. Disposition Clinical Impression: Hand contusion, Hand sprain Disposition: HOME SELF-CARE Condition: Good Instructions (If sedation given, give patient instructions): Hand Sprain (ED) Additional Instructions: Patient instructed to continue wearing the Ezequiel wrap and take Tylenol and/or Motrin as needed for pain or inflammation. Follow-up with her primary care doctor next week and return to the emergency room with any new or concerning symptoms including increased pain, pallor or numbness. Is patient prescribed a controlled substance at d/c from ED?: No Referrals: None,Stated [Primary Care Provider] - 1-2 days Time of Disposition: 13:47
--- NOTE | 2022-02-12 13:34 | XR ---
EXAMINATION TYPE: XR hand complete RT DATE OF EXAM: 02/12/2022 1:10 PM INDICATION: Patient age:Female; 26 years old; Reason for study: injury/pain; COMPARISON: None TECHNIQUE: 3 views of the right hand were obtained frontal lateral and oblique. FINDINGS: Normal alignment of the visualized joints. No acute osseous pathology is identified. No e vidence of soft tissue swelling. IMPRESSION: No acute osseous pathology.
== END 2022-02-12 14:25 | disposition home or self-care (01) ==
LOC: EC 12:57
DX: S63.91XA Sprain of unspecified part of right wrist and hand, initial encounter (principal); Z91.013 Allergy to seafood; Z23 Encounter for immunization; W22.09XA Striking against other stationary object, initial encounter
CPT/HCPCS: 90471; 90715; 99283

== ENCOUNTER 2023-10-04 23:43 | Emergency (ER) | payer BC ==
[2023-10-05 00:14] VITALS: RESP 16
[2023-10-05] MEDS: MAG HYDROX/AL HYDROX/SIMETH 30 ML CUP PO STA (01:15)
[2023-10-05] MEDS: FAMOTIDINE 20 MG TAB PO STA (01:16)
--- NOTE | 2023-10-05 01:45 | ED ---
General Adult HPI - General Chief complaint: Nausea/Vomiting/Diarrhea Stated complaint: VOMITING Time Seen by Provider: 10/05/23 00:39 Source: patient Mode of arrival: ambulatory Limitations: no limitations - History of Present Illness Initial comments: 28-year-old female presents to the ED with a chief complaint of heartburn. Patient states that this has been an ongoing issue for some time now however states more recently has been causing her more trouble sleeping at night prompting presentation to the ED for further evaluation. Patient has not tried any oerz-zwo-fostmmt measures for this as she reports she does not have any at home. No chest pain or shortness of breath. No abdominal pain. No other complaints at this time. - Related Data Home Medications Medication Instructions Recorded Confirmed EPINEPHrine (Auto Inject) [Epipen] 0.3 mg IM ONCE PRN 04/08/21 04/08/21 Previous Rx's Medication Instructions Recorded predniSONE 50 mg PO DAILY #5 tab 04/08/21 Famotidine [Pepcid] 20 mg PO BID #28 tablet 10/05/23 Allergies Allergy/AdvReac Type Severity Reaction Status Date / Time bee venom protein (honey bee) Allergy Anaphylaxis Verified 10/04/23 23:57 Review of Systems ROS Statement: Those systems with pertinent positive or pertinent negative responses have been documented in the HPI. ROS Other: All systems not noted in ROS Statement are negative. Past Medical History Past Medical History: No Reported History Additional Past Medical History / Comment(s): Obstetric history: She's had 1 pr ior spontaneous , calcium deposit left tempel History of Any Multi-Drug Resistant Organisms: None Reported Past Surgical History: No Surgical Hx Reported Past Psychological History: ADD/ADHD Smoking Status: Vaper Past Alcohol Use History: Occasional Past Drug Use History: Marijuana General Exam Limitations: no limitations General appearance: alert, obese Eye exam: Present: normal appearance Respiratory exam: Present: normal lung sounds bilaterally Cardiovascular Exam: Present: regular rate, normal rhythm GI/Abdominal exam: Present: soft (No tenderness to palpation. No rebound guarding or rigidity.) Neurological exam: Present: alert, oriented X3 Skin exam: Present: warm, dry Course Vital Signs 10/04/23 10/05/23 23:57 01:10 Temperature 98.8 F Pulse Rate 81 85 Respiratory 16 16 Rate Blood Pressure 122/75 111/69 O2 Sat by Pulse 97 98 Oximetry Medical Decision Making - Medical Decision Making Was pt. sent in by a medical professional or institution (, [facility], TIRE DUSTER, urgent care, hospital, or fdc...) When possible be specific @ -No Did you speak to anyone other than the patient for history (EMS, parent, family, police, friend...)? What history was obtained from this source @ -No Did you review nursing and triage notes (agree or disagree)? Why? @ -I reviewed and agree with nursing and triage notes Were old charts reviewed (outside hosp., previous admission, EMS record, old EKG, old radiological studies, urgent care reports/EKG's, fdc records)? Report findings @ -No old charts were reviewed Differential Diagnosis (chest pain, altered mental status, abdominal pain women, abdominal pain men, vaginal bleeding, weakness, fever, dyspnea, syncope, headache, dizziness, GI bleed, back pain, seizure, CVA, palpatations, mental health, musculoskeletal)? @ -Differential Abdominal Pain Women: Appendicitis, Cholecystitis, diverticulosis, ischemic bowel, pancreatitis, hepatitis, UTI, gastroenteritis, AAA, incarcerated hernia, bowel obstruction, constipation, inflammatory bowel, hepatitis, peptic ulcer disease, splenic infarction, perforated viscus, vulvitis, ovarian torsion, PID, kidney stone, placenta abruption, this is not meant to be an all-inclusive list EKG interpreted by me (3pts min.). @ -None X-rays interpreted by me (1pt min.). @ -None done CT interpreted by me (1pt min.). @ -None done U/S interpreted by me (1pt. min.). @ -None done What testing was considered but not performed or refused? (CT, X-rays, U/S, labs)? Why? @ -None What meds were considered but not given or refused? Why? @ -None Did you discuss the management of the patient with other professionals (professionals i.e. , LINDA, TIRE DUSTER, lab, RT, psych nurse, social work nurse, dehydrogenation converter operator, teacher, signals officer, case specialist)? Give summary @ -No Was smoking cessation discussed for >3mins.? @ -No Was critical care preformed (if so, how long)? @ -No Were there social determinants of health that impacted care today? How? (Homelessness, low income, unemployed, alcoholism, drug addiction, transportation, low edu. Level, literacy, decrease access to med. care, detention, rehab)? @ -No Was there de-escalation of care discussed even if they declined (Discuss DNR or withdrawal of care, Hospice)? DNR status @ -No What co-morbidities impacted this encounter? (DM, HTN, Smoking, COPD, CAD, Cancer, CVA, ARF, Chemo, Hep., AIDS, mental health diagnosis, sleep apnea, morbid obesity)? @ -None Was patient admitted / discharged? Hospital course, mention meds given and r oute, prescriptions, significant lab abnormalities, going to OR and other pertinent info. @ -Discharge 28-year-old female presenting to the ED with a chief complaint of heartburn. No other complaints at this time. Patient was provided Pepcid, with calcium carbonate, magnesium hydroxide with improvement of symptoms. Provided prescription for Pepcid. Advised use of cfqj-ozi-[id number] antacids and avoiding aggravating foods. Advise follow-up with PCP. Discussed return precautions with patient who verbalized agreement. At time of discharge vital signs stable afebrile. Undiagnosed new problem with uncertain prognosis? @ -No Drug Therapy requiring intensive monitoring for toxicity (Heparin, Nitro, Insulin, Cardizem)? @ -No Were any procedures done? @ -No Diagnosis/symptom? @ -Heartburn Acute, or Chronic, or Acute on Chronic? @ -Acute on chronic Uncomplicated (without systemic symptoms) or Complicated (systemic symptoms)? @ -Uncomplicated Side effects of treatment? @ -No Exacerbation, Progression, or Severe Exacerbation? @ -No Poses a threat to life or bodily function? How? (Chest pain, [place], [place], pneumonia, PE, COPD, DKA, ARF, appy, cholecystitis, CVA, Diverticulitis, Homicidal, Suicidal, threat to staff... and all critical care pts) @ -No Disposition Clinical Impression: Heartburn Disposition: HOME SELF-CARE Condition: Good Instructions (If sedation given, give patient instructions): GERD (Gastroesophageal Reflux Disease) (ED), Famotidine (By mouth) Additional Instructions: Please return to the Emergency Department if symptoms worsen or any other concerns. Please follow-up with your PCP. Prescriptions: Famotidine [Pepcid] 20 mg PO BID #28 tablet Is patient prescribed a controlled substance at d/c from ED?: No Referrals: None,Stated [Primary Care Provider] - 1-2 days Time of Disposition: 01:48
[2023-10-05] MEDS: CALCIUM CARBONATE 500 MG CHEWABLE PO STA (01:53)
[2023-10-05 01:58] VITALS: BP 100/71; PULSE 70; TEMP 97.8
== END 2023-10-05 01:55 | disposition home or self-care (01) ==
LOC: EC 23:43
DX: R12 Heartburn (principal); F17.290 Nicotine dependence, other tobacco product, uncomplicated; F12.90 Cannabis use, unspecified, uncomplicated; Z91.030 Bee allergy status
CPT/HCPCS: 99283

== ENCOUNTER 2024-09-12 11:25 | Emergency (ER) | payer BC ==
[2024-09-12 12:46] LABS: Appearance,Urine Cloudy (Clear); Bacteria,Urine Occasional /hpf; Bilirubin,Urine Negative (Negative); Blood,Urine Negative (Negative); Color,Urine Colorless; Glucose,Urine (UA) Negative (Negative); Ketones,Urine Negative (Negative); Leukocyte Esterase,Urine Negative (Negative); Mucus,Urine Rare /hpf; Nitrite,Urine Negative (Negative); PH, Urine 6.5 (5.0-8.0); Protein,Urine Negative (Negative); RBC,Urine 2 /hpf (0-5); Specific Gravity,Urine 1.009 (1.001-1.035); Squamous Epithelial Cell,Urine 13 /hpf (0-4); Urobilinogen,Urine <2.0 mg/dL (<2.0); WBC,Urine 1 /hpf (0-5)
--- NOTE | 2024-09-12 13:22 | XR ---
EXAMINATION TYPE: XR chest 2V DATE OF EXAM: 09/12/2024 12:59 PM COMPARISON: None CLINICAL INDICATION: Female, 29 years old with history of fever, , TECHNIQUE: PA and lateral views FINDINGS: The cardiomediastinal silhouette, aorta, and pulmonary vasculature are within normal limits. Mild kong tral peribronchial cuffing. Otherwise, lungs and pleural spaces are clear. IMPRESSION: Mild central peribronchial cuffing could reflect bronchitis or asthma. Otherwise, no acute process se en. [facility], Workstation: [facility], 09/12/2024 1:20 PM
[2024-09-12 13:23] LABS: Influenza A Not Detected (Not Detectd); Influenza B Not Detected (Not Detectd); RSV Not Detected (Not Detectd)
--- NOTE | 2024-09-12 13:32 | ED ---
Nausea/Vomiting/Diarrhea HPI - General Chief complaint: Nausea/Vomiting/Diarrhea Stated complaint: congestion,cough Time Seen by Provider: 09/12/24 11:54 Source: patient, RN notes reviewed Mode of arrival: ambulatory Limitations: no limitations - History of Present Illness Initial comments: 49-year-old female presents emerged from complaint cough congestion nausea states that she is expected to have a fever, body aches. Patient states she has a nausea and vomiting most in the morning. She states she may be . Patient denies any chest pain no abdominal discomfort no other complaints. - Related Data Home Medications Medication Instructions Recorded Confirmed EPINEPHrine (Auto Inject) [Epipen] 0.3 mg IM ONCE PRN 04/08/21 04/08/21 Previous Rx's Medication Instructions Recorded predniSONE 50 mg PO DAILY #5 tab 04/08/21 Famotidine [Pepcid] 20 mg PO BID #28 tablet 10/05/23 Ondansetron Odt [Zofran Odt] 4 mg PO Q8HR PRN #10 tab 09/12/24 predniSONE 50 mg PO DAILY #5 tab 09/12/24 Allergies Allergy/AdvReac Type Severity Reaction Status Date / Time bee venom protein (honey bee) Allergy Anaphylaxis Verified 09/12/24 11:47 Review of Systems ROS Statement: Those systems with pertinent positive or pertinent negative responses have been documented in the HPI. ROS Other: All systems not noted in ROS Statement are negative. Past Medical History Past Medical History: No Reported History Additional Past Medical History / Comment(s): Obstetric history: She's had 1 prior spontaneous , calcium deposit left tempel History of Any Multi-Drug Resistant Organisms: None Reported Past Surgical History: No Surgical Hx Reported Past Psychological History: ADD/ADHD Smoking Status: Vaper Past Alcohol Use History: Occasional Past Drug Use History: Marijuana General Exam Limitations: no limitations General appearance: alert, in no apparent distress Head exam: Present: atraumatic, normocephalic, normal inspection Eye exam: Present: normal appearance, PERRL, EOMI. Absent: scleral icterus, conjunctival injection, periorbital swelling ENT exam: Present: normal exam, normal oropharynx, mucous membranes moist Neck exam: Present: normal inspection, full ROM. Absent: tenderness, meningismus, lymphadenopathy Respiratory exam: Present: normal lung sounds bilaterally. Absent: respiratory distress, wheezes, rales, rhonchi, stridor Cardiovascular Exam: Present: regular rate, normal rhythm, normal heart sounds. Absent: systolic murmur, diastolic murmur, rubs, gallop, clicks Course Vital Signs 09/12/24 09/12/24 11:47 11:57 Temperature 98.5 F Pulse Rate 78 Respiratory 18 18 Rate Blood Pressure 131/81 O2 Sat by Pulse 97 Oximetry Medical Decision Making - Medical Decision Making Was pt. sent in by a medical professional or institution (LINDA Banda, ETHNOARCHAEOLOGIST, urgent care, hospital, or intermediate...) When possible be specific @ -No Did you speak to anyone other than the patient for history (EMS, parent, family, police, friend...)? What history was obtained from this source @ -No Did you review nursing and triage notes (agree or disagree)? Why? @ -I reviewed and agree with nursing and triage notes Were old charts reviewed (outside hosp., previous admission, EMS record, old EKG, old radiological studies, urgent care reports/EKG's, intermediate records)? Report findings @ -No old charts were reviewed Differential Diagnosis (chest pain, altered mental status, abdominal pain women, abdominal pain men, vaginal bleeding, weakness, fever, dyspnea, syncope, headache, dizziness, GI bleed, back pain, seizure, CVA, palpatations, mental health, musculoskeletal)? @ -COVID 19, RSV, influenza, pneumonia, acute bronchitis, URI, this list is not all inclusive EKG interpreted by me (3pts min.). @ -None X-rays interpreted by me (1pt min.). @ -Chest x-ray shows mild bronchial cuffing, no infiltrate CT interpreted by me (1pt min.). @ -None done U/S interpreted by me (1pt. min.). @ -None done What testing was considered but not performed or refused? (CT, X-rays, U/S, labs)? Why? @ -None What meds were considered but not given or refused? Why? @ -None Did you discuss the management of the patient with other professionals (professionals i.e. LINDA Banda, ETHNOARCHAEOLOGIST, lab, RT, psych nurse, social insurance administrator, filler machine operator, teacher, community service patrol officer, case advocate)? Give summary @ -No Was smoking cessation discussed for >3mins.? @ -No Was critical care preformed (if so, how long)? @ -No Were there social determinants of health that impacted care today? How? (Homelessness, low income, unemployed, alcoholism, drug addiction, transportation, low edu. Level, literacy, decrease access to med. care, fdc, rehab)? @ -No Was there de-escalation of care discussed even if they declined (Discuss DNR or withdrawal of care, Hospice)? DNR status @ -No What co-morbidities impacted this encounter? (DM, HTN, Smoking, COPD, CAD, Cancer, CVA, ARF, Chemo, Hep., AIDS, mental health diagnosis, sleep apnea, morbid obesity)? @ -None Was patient admitted / discharged? Hospital course, mention meds given and route, prescriptions, significant lab abnormalities, going to OR and other pertinent info. @ -Patient presented for URI symptoms patient has acute bronchitis. Patient be discharged in stable condition return parameters renu. Undiagnosed new problem with uncertain prognosis? @ -No Drug Therapy requiring intensive monitoring for toxicity (Heparin, Nitro, Insulin, Cardizem)? @ -No Were any procedures done? @ -No Diagnosis/symptom? @ -Acute bronchitis, nausea Acute, or Chronic, or Acute on Chronic? @ -Acute Uncomplicated (without systemic symptoms) or Complicated (systemic symptoms)? @ -Uncomplicated Side effects of treatment? @ -No Exacerbation, Progression, or Severe Exacerbation? @ -No Poses a threat to life or bodily function? How? (Chest pain, [place], [place], pneumonia, PE, COPD, DKA, ARF, appy, cholecystitis, CVA, Diverticulitis, Homicidal, Suicidal, threat to staff... and all critical care pts) @ -No - Lab Data Lab Results 09/12/24 09/12/24 09/12/24 Range/Units 12:05 12:05 12:05 Urine Color Colorless Urine Appearance Cloudy H (Clear) Urine pH 6.5 (5.0-8.0) Ur Specific [place] 1.009 (1.001-1.035) Urine Protein Negative (Negative) Urine Glucose (UA) Negative (Negative) Urine Ketones Negative (Negative) Urine Blood Negative (Negative) Urine Nitrite Negative (Negative) Urine Bilirubin Negative (Negative) Urine Urobilinogen <2.0 (<2.0) mg/dL Ur Leukocyte Esterase Negative (Negative) Urine RBC 2 (0-5) /hpf Urine WBC 1 (0-5) /hpf Ur Squamous Epith Cells 13 H (0-4) /hpf Urine Bacteria Occasional H (None) /hpf Urine Mucus Rare H (None) /hpf Urine HCG, Qual Not Detected (Not Detectd) Influenza Type A (PCR) Not Detected (Not Detectd) Influenza Type B (PCR) Not Detected (Not Detectd) RSV (PCR) Not Detected (Not Detectd) SARS-CoV-2 (PCR) Not Detected (Not Detectd) Disposition Clinical Impression: Acute bronchitis Disposition: HOME SELF-CARE Condition: Stable Instructions (If sedation given, give patient instructions): Acute Bronchitis (ED) Additional Instructions: Please return to the Emergency Department if symptoms worsen or any other concerns. Prescriptions: predniSONE 50 mg PO DAILY #5 tab Ondansetron Odt [Zofran Odt] 4 mg PO Q8HR PRN #10 tab PRN Reason: Nausea Is patient prescribed a controlled substance at d/c from ED?: No Referrals: [facility] [NON-STAFF] - 1-2 days [facility] [NON-STAFF] - 1-2 days (Contact office to become established with a primary care provider. ) None,Stated [Primary Care Provider] - 1-2 days Forms: Area PCPs Time of Disposition: 13:32
[2024-09-12 14:02] VITALS: BP 109/71; PULSE 63; RESP 20; TEMP 97.8
== END 2024-09-12 14:01 | disposition home or self-care (01) ==
LOC: EC 11:25
DX: J20.9 Acute bronchitis, unspecified (principal); F17.290 Nicotine dependence, other tobacco product, uncomplicated; Z91.030 Bee allergy status
CPT/HCPCS: 71046; 81001; 81025; 87636; 99284